=== PATIENT | female | born 2000 | race Caucasian/White ===

== ENCOUNTER 2022-08-05 12:14 | Emergency (ER) | payer BC ==
[2022-08-05] MEDS ORDERED: Acetaminophen 500 MG TAB ONE (12:56)
== END 2022-08-05 13:47 | disposition home or self-care (01) ==
LOC: CSHERS 12:14
DX: S01.01XA Laceration without foreign body of scalp, initial encounter (principal); R55 Syncope and collapse; W22.09XA Striking against other stationary object, initial encounter
CPT/HCPCS: 12001; 36416; 93005